=== PATIENT | female | born 1990 | race Two or more races ===

== ENCOUNTER 2017-08-30 13:05 | Emergency (ER) | payer SELFPAY ==
[2017-08-30 13:24] LABS: BASOPHIL (%) 0.2 % (0-1); EOSINOPHIL (%) 0.6 % (0-5); EOSINOPHIL COUNT 0.1 K/uL (0-0.3); HEMATOCRIT 41.7 % (36.0-46.0); HEMOGLOBIN 14.4 G/DL (11.9-15.5); IMMATURE GRANULOCYTE (%) 0.5 % (0.0-0.7); LYMPHOCYTE (%) 14.7 % (15-42); LYMPHOCYTE COUNT 1.9 K/uL (1.0-2.8); MCHC 34.5 G/DL (30.0-36.0); MCV 86.9 FL (83-99); MONOCYTE COUNT 0.6 K/uL (0-0.8); PLATELET COUNT 329 K/uL (156-360); RBC DIS.WIDTH-CV 12.9 % (11.8-14.6); RBC DIS.WIDTH-SD 40.9 % (39-53); WHITE BLOOD COUNT 12.6 K/uL (4.1-10.2)
[2017-08-30 13:36] LABS: AMYLASE 74 IU/L (1-118); CHLORIDE 108 mEq/L (99-109); POTASSIUM 4.3 mEq/L (3.7-5.4); SODIUM 140 mEq/L (136-147)
[2017-08-30 13:38] LABS: GLUCOSE 101 mg/dL (70-99)
[2017-08-30 13:41] LABS: SERUM ETHYL ALCOHOL < 10 mg/dL
[2017-08-30 13:42] LABS: CREATININE 0.8 mg/dL (0.6-1.3); UREA NITROGEN (BUN) 10 mg/dL (9-23)
[2017-08-30 13:45] LABS: LIPASE 12 U/L (1.0-51.0)
[2017-08-30 13:49] LABS: GFR ESTIMATE (CALCULATED) > 59 mL/min/
[2017-08-30 13:51] LABS: QUANTITATIVE HCG < 4.0 MIU/ML
[2017-08-30 14:43] LABS: APPEARANCE CLEAR ((CLEAR)); BILIRUBIN NEGATIVE; BLOOD NEGATIVE; COLOR STRAW ((YELLOW)); GLUCOSE (STRIP) NEGATIVE; KETONES NEGATIVE; LEUKOCYTES NEGATIVE; NITRITE NEGATIVE; PROTEIN (STRIP) NEGATIVE; SPECIFIC GRAVITY 1.004 (1.000-1.030); UCUL ADDED? NO; UROBILINOGEN 0.2 MG/DL (0.2-1.0)
[2017-08-30 14:58] LABS: THC CANNABINOIDS PRESUMPTIVE POSITIVE (50 ng/mL)
[2017-08-30 14:59] LABS: AMPHETAMINE NEGATIVE (500 ng/mL); BARBITURATES NEGATIVE (200 ng/mL); BENZODIAZEPINES NEGATIVE (150 ng/mL); BUPRENORPHINE NEGATIVE (10 ng/mL); COCAINE NEGATIVE (150 ng/mL); METHADONE NEGATIVE (200 ng/mL); METHAMPHETAMINE NEGATIVE (500 ng/mL); OPIATES (MORPHINE) NEGATIVE (100 ng/mL); OXYCODONE NEGATIVE (100 ng/mL); PHENCYCLIDINE NEGATIVE (25 ng/mL); PROPOXYPHENE NEGATIVE (300 ng/mL); TRICYCLIC ANTIDEPRESSANTS NEGATIVE (300 ng/mL)
== END 2017-08-30 17:19 | disposition home or self-care (01) ==
LOC: TRA 13:05
PROVIDERS: Emergency Medicine
PROC: 3E0234Z Introduction of Serum, Toxoid and Vaccine into Muscle, Percutaneous Approach (ICD-10-PCS; principal; 2017-08-30)
DX: S70.02XA Contusion of left hip, initial encounter (principal); S70.01XA Contusion of right hip, initial encounter; S80.02XA Contusion of left knee, initial encounter; S40.022A Contusion of left upper arm, initial encounter; S40.021A Contusion of right upper arm, initial encounter; S80.12XA Contusion of left lower leg, initial encounter; S80.11XA Contusion of right lower leg, initial encounter; S10.91XA Abrasion of unspecified part of neck, initial encounter; S70.212A Abrasion, left hip, initial encounter; S80.211A Abrasion, right knee, initial encounter; S90.512A Abrasion, left ankle, initial encounter; S90.511A Abrasion, right ankle, initial encounter; S70.311A Abrasion, right thigh, initial encounter; S00.91XA Abrasion of unspecified part of head, initial encounter; Y04.2XXA Assault by strike against or bumped into by another person, initial encounter; Y07.03 Male partner, perpetrator of maltreatment and neglect; M53.82 Other specified dorsopathies, cervical region; R11.0 Nausea; Z23 Encounter for immunization
CPT/HCPCS: 70486; 70498; 71045; 80048; 81003; 82150; 83690; 84702; 84999; 85025; 86850; 86900; 86901; 99281; 99285; G0480; J2405